=== PATIENT | female | born 1970 | race Caucasian/White ===

== ENCOUNTER 2022-01-17 07:08 | Day surgery (SDC) | payer BC ==
[2022-01-17] MEDS ORDERED: Ringers Lactate 1,000 ML IV ONE (07:14)
[2022-01-17] MEDS ORDERED: FENTANYL CITR 100 MCG/2 ML ONE (08:00)
[2022-01-17] MEDS ORDERED: LIDOCAINE 1% MPF 10 ML AMPULE ONE (08:01)
[2022-01-17] MEDS ORDERED: ONDANSETRON 4 MG/2 ML VIAL ONE (08:01)
[2022-01-17] MEDS ORDERED: propofoL 200 MG/20 ML VIAL IV ONE (08:01)
--- NOTE | 2022-01-17 08:29 | ENDO RPT ---
[address], [address] COLONOSCOPY PROCEDURE REPORT EXAM DATE: 01/17/2022 PATIENT NAME: Joanne Hairston MR #: [id number] BIRTHDATE: 1970 ATTENDING: Andrea Christian DR STATUS: outpatient [employer] DIRECTOR: Mercedes Bingham RN and Aneudy Ralph [facility] INDICATIONS: The patient is a 51 yr old Female here for a colonoscopy due to colon cancer screening PROCEDURE PERFORMED: Screening Colonoscopy and Colonoscopy MEDICATIONS: Per Anesthesia. ESTIMATED BLOOD LOSS: None CONSENT: The patient understands the risks and benefits of the procedure and understands that these risks include, but are not limited to: sedation, allergic reaction, infection, perforation and/or bleeding. Alternative means of evaluation and treatment include, among others: physical exam, x-rays, and/or surgical intervention. The patient elects to proceed with this endoscopic procedure. DESCRIPTION OF PROCEDURE: During intra-op preparation period all mechanical medical equipment was checked for proper function. Hand hygiene and appropriate measures for infection prevention was taken. Procedure, possible complications, alternatives including, but not limited to possibility of bleeding, perforation, tear, infection, sepsis, need for surgery, need for blood transfusion, were explained to the patient. After the risks, benefits and alternatives of the procedure were thoroughly explained, Informed consent was verified, confirmed and timeout was successfully executed by the treatment team. The patient was placed in the left lateral position. A digital rectal exam was performed and revealed internal hemorrhoids. After appropriate level of anesthesia, the scope was passed. The EC-[id number] ([id number]) endoscope was introduced through the anus and advanced to the cecum, which was identified by both the appendix and ileocecal valve. The quality of the prep was fair. The instrument was then slowly withdrawn as the colon was fully examined. Scope withdrawal time was 8 minutes. COLON FINDINGS: A normal appearing cecum, ileocecal valve, and appendiceal orifice were identified. the ascending, transverse, descending, sigmoid colon, and rectum appeared unremarkable. Small internal hemorrhoids were found. Retroflexed views revealed no abnormalities. The scope was then completely withdrawn from the patient and the procedure terminated. ADVERSE EVENTS: There were no complications. IMPRESSIONS: 1. A normal appearing cecum, ileocecal valve, and appendiceal orifice were identified. the ascending, transverse, descending, sigmoid colon, and rectum appeared unremarkable 2. Small internal hemorrhoids RECOMMENDATIONS: 1. fiber rich diet 2. follow-up: office 4 year(s) 3. Monitor for any evidence of rectal bleeding. 4. hemorrhoidal hygiene 5. yearly hemoquant 6. yearly hemoccult starting in 4 years RECALL: Return in 10 year(s) for Colonoscopy. Fecal DNA Test in [address] eSigned: Andrea Christian DR 01/17/2022 8:28 AM cc: CPT CODES: ICD9 CODES: PATIENT NAME: Joanne Hairston MR#: [id number]
[2022-01-17 15:04] VITALS: O2SAT 100
[2022-01-17 15:05] VITALS: BP 99/67; TEMP 97.8
== END 2022-01-17 08:56 | disposition home or self-care (01) ==
LOC: OR 07:08
PROVIDERS: ATTEND Surgery
PROC: 0DJD8ZZ Inspection of Lower Intestinal Tract, Via Natural or Artificial Opening Endoscopic (ICD-10-PCS; principal; 2022-01-17 08:00)
DX: Z12.11 Encounter for screening for malignant neoplasm of colon (principal); K64.8 Other hemorrhoids
CPT/HCPCS: 45378; J2704; J3010; J7120; J2405